=== PATIENT | male | born 1950 | race Caucasian/White ===

== ENCOUNTER 2021-02-09 19:17 | Emergency (ER) | payer OTHER ==
--- OUTSIDE RECORDS SUMMARY | 2021-02-09 19:19 | XMS REPORT | Continuity of Care Document ---
:1950 Author Organization [facility] t Address [address] [place] [address] Care Team Providers Name Role Phone OLIVA MAIN M.D. Attending Clinician Unavailable Problems Condition Condition Condition Status Onset Resolution Last Treating Co mments Source Name Details Category Date Date Treatment Clinician Date Appiah Appiah Problem Active [facility] angioma angioma [facility] [place] [facility] Actinic Actinic Problem Active [facility] keratosis keratosis [facility] [place] [facility] Acrochordo Acrochordo Problem Active U nivers n n [facility] [place] [facility] Seborrheic Seborrheic Problem Active U nivers keratoses keratoses [facility] [place] [facility] Allergies, Adverse Reactions, Alerts This patient has no known allergies or adverse reactions. Social History Smoking Status Start Date Stop Date Source Never smoker [facility] Medications Ordered Filled Start Stop Current Ordering Indication Dosage Frequency Signature Comments Components Source Medication Medication Date Date Medication? Clinician (SIG) Name Name Diovan HCT Diovan HCT Yes Uni vers 80-12.5 MG 80-12.5 MG [facility] Oral Tablet Oral Tablet [facility] [facility] Levothyroxi Levothyroxi Yes U nivers ne Sodium ne Sodium ity o f TABS TABS [place] [facility] Baby Baby Yes [facility] Aspirin 81 Aspirin 81 it[facility] of MG CHEW MG CHEW [place] [facility] Simvastatin Simvastatin Yes U nivers TABS TABS [facility] [place] [facility] Procedures This patient has no known procedures. Encounters Start End Encounter Admission Attending Care Care Encounter Source Date/Time Date/Time Type Type Clinicians Facility Department ID 2017-03-19 2017-03-19 Appointmen [facility]PH[facility] Dermatology [id number] [facility] 10:15:00 10:15:00 t; OLIVA MAIN M.D. [facility] [place], M.D. [place] [facility] Results Test Description Test Time Test Comments Results Result Comments Source Tobacco Use Screening 2017-01-23 16:15:00 Test Item Value Reference Range Interpretation Comme nts Completed (test code = Completed) DONE [facility]
--- NOTE | 2021-02-09 21:36 | RAD REPORT ---
EXAM DESCRIPTION: CT - Head Brain Wo Cont - 02/09/2021 9:17 pm CLINICAL HISTORY: Headache status post fall COMPARISON: None TECHNIQUE: Computed axial tomography of the head was obtained. IV contrast was not requested. All CT scans are performed using dose optimization technique as appropriate and may include automated exposure control or mA/KV adjustment according to patient size. FINDINGS: An intracranial bleed is not seen . The ventricles are normal in caliber. No extra-axial fluid collection is noted. . Right frontal scalp swelling. Fluid within the sinuses/ mastoids is not seen. IMPRESSION: No acute intracranial abnormality is seen. If patient's symptoms persist MRI of the bra in would be recommended.
--- NOTE | 2021-02-09 21:36 | RAD REPORT ---
EXAM DESCRIPTION: CT - Facial Bones W/ Mpr - 02/09/2021 9:17 pm CLINICAL HISTORY: Facial injury status post fall. Facial pain COMPARISON: None TECHNIQUE: Computed axial tomography of the face was obtained. Coronal and sagittal reconstruction w as performed. All CT scans are performed using dose optimization technique as appropriate and may include automated exposure control or mA/KV adjustment according to patient size. FINDINGS: Right frontal scalp laceration. A fracture is not seen. A TMJ dislocation is not noted. The globes are intact. Fluid within the sinuses is not seen. IMPRESSION: Negative for a facial fracture.
[2021-02-09] MEDS ORDERED: TETANUS & DIPHTHERIA TOX,ADULT 0.5 ML VIAL ONE (21:45)
[2021-02-09] MEDS ORDERED: DERMABOND SKIN ADHESIVE TOP ONE (21:58)
--- NOTE | 2021-02-09 22:02 | ER ---
Nurse's Notes [facility] Name: Robbin Jensen Age: 70 yrs Sex: Male : 1950 Arrival Date: 02/09/2021 Time: 19:32 Bed 15 Private MD: Diagnosis: Fall on same level from slipping, tripping and stumbling without subsequent striking against object;Laceration above right eyebrow;Abrasion of nose;Abrasion of chin Presentation: 02/09 19:32 Chief complaint: Patient states: He slipped on the on a steel threshold and fell face aj1 first into the concrete. Denies LOC, vomiting. Reports dizziness. Laceration noted to right eyebrow and bridge of nose, not currently bleeding. Coronavirus screen: Client denies travel out of the [place] in the last 14 days. Ebola Screen: Patient denies travel to an Ebola-affected area in the 21 days before illness onset. Initial Sepsis Screen: Does the patient meet any 2 criteria? No. Patient's initial sepsis screen is negative. Does the patient have a suspected source of infection? No. Patient's initial sepsis screen is negative. Risk Assessment: Do you want to hurt yourself or someone else? Patient reports no desire to harm self or others. Onset of symptoms was February 09, 2021. 19:32 Method Of Arrival: Ambulatory aj1 19:32 Acuity: ANA 3 aj1 Triage Assessment: 21:00 General: Appears in no apparent distress. Behavior is calm, cooperative. Pain: mr2 Complains of pain in forehead Pain does not radiate. Pain currently is 4 out of 10 on a pain scale. Historical: - Home Meds: 22:44 Aspirin Oral [Active]; hctz [Active]; Simvastatin Oral [Active]; mr2 - PMHx: 22:44 Hypercholesterolemia; Hypertensive disorder; mr2 - Immunization history:: Adult Immunizations up to date. - Social history:: Smoking status: Patient denies any tobacco usage or history of. Screenin:00 Abuse screen: Denies threats or abuse. Denies injuries from another. Nutritional mr2 screening: No deficits noted. Tuberculosis screening: No symptoms or risk factors identified. Fall Risk None identified. Vital Signs: 19:32 BP 142 / 72; Pulse 75; Resp 18; Temp 97.4; Pulse Ox 99% on R/A; Weight 122.47 kg (R); aj1 Height 6 ft. 2 in. (187.96 cm) (R); Pain 5/10; 22:20 BP 137 / 77; Pulse 74; Resp 17; Temp 98.4; Pulse Ox 100% on R/A; mr2 19:32 Body Mass Index 34.67 (122.47 kg, 187.96 cm) aj1 ED Course: 19:32 Patient arrived in ED. aj1 19:37 Triage completed. aj1 19:38 [facility] kb 19:38 Pepe Saenz MD is Attending Physician. kb 19:47 Rebekah Ott, RN is Primary Nurse. aj1 21:00 Arm band placed on right wrist. mr2 21:00 Patient has correct armband on for positive identification. mr2 21:00 No provider procedures requiring assistance completed. mr2 21:17 CT Head Brain wo Cont In Process Unspecified. EDMS 21:17 CT Facial Bones W/O Con In Process Unspecified. EDMS 22:20 Patient did not have IV access during this emergency room visit. mr2 Administered Medications: 22:00 Drug: Tetanus-Diphtheria Toxoid Adult 0.5 ml {Vice President Sales: [employer]. Exp: mr2 07/10/2022. Lot #: [id number]. } Route: IM; Site: left deltoid; Outcome: 22:00 Discharge ordered by MD. kb 22:20 Discharged to home ambulatory, with family. mr2 22:20 Condition: good 22:20 Discharge instructions given to patient, Instructed on discharge instructions. 22:44 Patient left the ED. mr2 Signatures: Dispatcher [employer] EDMS Domenica Fry FNP-C FNP-Rebekah Montiel, RN RN aj1 Jose Ramon Arndt RN RN mr2
--- NOTE | 2021-02-09 22:02 | EDPHYS ---
Physician Documentation [facility] Name: Robbin Jensen Age: 70 yrs Sex: Male : 1950 Arrival Date: 02/09/2021 Time: 19:32 Bed 15 Private MD: ED Physician Pepe Saenz HPI: 02/09 21:48 This 70 yrs old Male presents to ER via Ambulatory with complaints of facial injury s/p kb fall. 21:48 Details of fall: The patient fell from an upright position, while walking. Onset: The kb symptoms/episode began/occurred just prior to arrival. Associated injuries: The patient sustained injury to the head, abrasion, hematoma, laceration, pain, swelling. Severity of symptoms: At their worst the symptoms were moderate, in the emergency department the symptoms are unchanged. The patient has not experienced similar symptoms in the past. The patient has not recently seen a physician. Pt states he tripped over the threshold of son's house and fell to the floor causing swelling, abrasions and a laceration to face. Denies loc, headaches, visual changes. Historical: - Home Meds: 22:44 Aspirin Oral [Active]; hctz [Active]; Simvastatin Oral [Active]; mr2 - PMHx: 22:44 Hypercholesterolemia; Hypertensive disorder; mr2 - Immunization history:: Adult Immunizations up to date. - Social history:: Smoking status: Patient denies any tobacco usage or history of. ROS: 21:46 Constitutional: Negative for fever, chills, and weight loss. kb 21:46 Skin: Positive for abrasion(s), laceration(s), swelling, of the face. 21:46 All other systems are negative. Exam: 21:46 Constitutional: This is a well developed, well nourished patient who is awake, alert, kb and in no acute distress. ENT: Moist Mucous membranes Respiratory: Respirations even and unlabored. No increased work of breathing, no retractions or nasal flaring. MS/ Extremity: Pulses equal, no cyanosis. Neurovascular intact. Full, normal range of motion. Neuro: Awake and alert, GCS 15, oriented to person, place, time, and situation. Moves all extremities. Normal gait. Psych: Awake, alert, with orientation to person, place and time. Behavior, mood, and affect are within normal limits. 21:46 Head/face: Noted is no obvious of injury or deformity except abrasion(s), hematoma, a laceration(s). 21:46 Skin: injury, abrasion(s), small abrasion noted, of the nose and chin, laceration(s), the wound is approximately 2 cm(s), of the right side of forehead, that can be described as clean, no foreign body, linear, without bleeding. Vital Signs: 19:32 BP 142 / 72; Pulse 75; Resp 18; Temp 97.4; Pulse Ox 99% on R/A; Weight 122.47 kg (R); aj1 Height 6 ft. 2 in. (187.96 cm) (R); Pain 5/10; 22:20 BP 137 / 77; Pulse 74; Resp 17; Temp 98.4; Pulse Ox 100% on R/A; mr2 19:32 Body Mass Index 34.67 (122.47 kg, 187.96 cm) aj1 Laceration: 22:19 Wound Repair of 2cm ( 0.8in ) subcutaneous laceration to right side of forehead. Linear kb shaped.. Distal neuro/vascular/tendon intact. Wound prep: Moderate cleansing with hibiclenz by nurse, Wound irrigation with saline by nurse. Skin closed with thin layer Adhesive skin closure using Dermabond. Patient tolerated well. MDM: 19:46 Patient medically screened. kb 21:41 Data reviewed: vital signs, nurses notes. Data interpreted: Pulse oximetry: on room air kb is 99 %. Interpretation: normal. Counseling: I had a detailed discussion with the patient and/or guardian regarding: the historical points, exam findings, and any diagnostic results supporting the discharge/admit diagnosis, radiology results, the need for outpatient follow up, a family practitioner, to return to the emergency department if symptoms worsen or persist or if there are any questions or concerns that arise at home. 02/09 20:04 Order name: CT Facial Bones W/O Con; Complete Time: 21:39 kb 02/09 20:04 Order name: CT Head Brain wo Cont; Complete Time: 21:39 kb 02/09 21:35 Order name: Wound Care kb 02/09 21:35 Order name: Dermabond kb Administered Medications: 22:00 Drug: Tetanus-Diphtheria Toxoid Adult 0.5 ml {[employer]: [employer]. Exp: mr2 07/10/2022. Lot #: [id number]. } Route: IM; Site: left deltoid; Disposition: 02/10 02:24 Co-signature as Attending Physician, Pepe Saenz MD. 7 Disposition Summary: 02/09/21 22:00 Discharge Ordered Location: Home kb Condition: Stable kb Diagnosis - Fall on same level from slipping, tripping and stumbling without subsequent kb striking against object - Laceration above right eyebrow kb - Abrasion of nose kb - Abrasion of chin kb Followup: kb - With: Emergency Department - When: As needed - Reason: Worsening of condition Followup: kb - With: Private Physician - When: 2 - 3 days - Reason: Recheck today's complaints, Continuance of care, Re-evaluation by your physician Discharge Instructions: - Discharge Summary Sheet kb - Facial Laceration, [id number] kb - Fall Prevention in the Home, Adult, [id number] kb Forms: - Medication Reconciliation Form kb - Thank You Letter kb - Antibiotic Education kb - Prescription Opioid Use kb Signatures: Dispatcher [employer] EDMS Domenica Fry, MARKETING DIRECTOR-C MARKETING DIRECTOR-Pepe Kuhn MD MD 7 Jose Ramon Arndt, RN RN mr2
[2021-02-09 23:02] VITALS: BP 137/77; TEMP 98.4; O2SAT 100
== END 2021-02-09 22:44 | disposition home or self-care (01) ==
LOC: ER 19:17
PROC: 0JQ10ZZ Repair Face Subcutaneous Tissue and Fascia, Open Approach (ICD-10-PCS; principal; 2021-02-09)
DX: S01.81XA Laceration without foreign body of other part of head, initial encounter (principal); W01.0XXA Fall on same level from slipping, tripping and stumbling without subsequent striking against object, initial encounter; I10 Essential (primary) hypertension; E78.00 Pure hypercholesterolemia, unspecified; Z23 Encounter for immunization; Z79.82 Long term (current) use of aspirin
CPT/HCPCS: 70450; 70486; 76377; 90471; 90714; 99283